=== PATIENT | female | born 1940 | race Caucasian/White ===

== ENCOUNTER → 2016-12-14 | Outpatient (CLI) | payer MEDICARE, OTHER ==
[~2016-12-14] MED LIST: AMBI5TAB PO; DIAZ5 PO; ESTR1 PO; HYDR-2768 PO; HYDR25TA5 PO; LEVO.1 PO; LEXA10TA PO; NABU1TAB37 PO; PRAM0.25 PO; ULTR50TA5 PO; ZOFR4TAB3 SL
[2016-12-14 14:24] LABS: ALKALINE PHOSPHATASE 66 U/L (45-117); ALT (GPT) 20 U/L (10-53); ANION GAP 10 MEQ/L (5-15); AST (GOT) 18 U/L (15-37); BICARBONATE 27.5 MEQ/L (21.0-32.0); BLOOD UREA NITROGEN 20 MG/DL (7-18); CHLORIDE 101 MEQ/L (98-107); GLOMERULAR FILTRATION RATE 46 ML/MIN (>89); GLUCOSE,FASTING 80 MG/DL (74-99); LDL CHOLESTEROL 99 MG/DL (0-99); POTASSIUM 3.8 MEQ/L (3.5-5.1); SODIUM (NA) 138 MEQ/L (136-145); TOTAL BILIRUBIN ADULT 0.5 MG/DL (0.2-1.0)
== END ==
LOC: PLAB 09:24
DX: E78.00 Pure hypercholesterolemia, unspecified (principal); E78.5 Hyperlipidemia, unspecified; E03.9 Hypothyroidism, unspecified; N18.3 Chronic kidney disease, stage 3 (moderate); Z79.899 Other long term (current) drug therapy
CPT/HCPCS: 36415; 80053; 80061; 84443

== ENCOUNTER 2017-02-02 06:57 | Emergency (ER) | payer MEDICARE, OTHER ==
[~2017-02-02] VITALS: Ht 157.5 cm; Wt 76.8 kg
[~2017-02-02 06:57] MED LIST changes: -AMBI5TAB PO; -DIAZ5 PO; -HYDR25TA5 PO; -NABU1TAB37 PO; -PRAM0.25 PO; -ULTR50TA5 PO
[2017-02-02 07:03] VITALS: BP 137/67; PULSE 75; RESP 16; TEMP 98.9; O2SAT 97
[2017-02-02] MEDS ORDERED: LEXA10TA PO (07:06)
[2017-02-02] MEDS ORDERED: ESTR1 PO (07:06)
[2017-02-02] MEDS ORDERED: AMBI5TAB PO (07:06)
[2017-02-02] MEDS ORDERED: LEVO.1 PO (07:06)
[2017-02-02] MEDS ORDERED: HYDR25TA5 PO (07:07)
[2017-02-02] MEDS ORDERED: PRAM0.25 PO (07:07)
[2017-02-02] MEDS ORDERED: DEXAMETHASONE SOD PHOS 20 MG/5 ML VIAL IV PUSH ONE (07:30)
[2017-02-02] MEDS ORDERED: MORPHINE SULFATE 4 MG/ML INJ IV ONE ×2 (07:30→08:45)
[2017-02-02] MEDS ORDERED: ONDANSETRON HCL 4 MG/2 ML VIAL IVP ONE (07:30)
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
[2017-02-02] MEDS ORDERED: LORazepam 2 MG/ML VIAL IV PUSH ONE (08:45)
--- NOTE | 2017-02-02 09:01 | RADHPO ---
EXAM DATE/TIME: 02/02/2017 08:09 [facility] COMPARISON: No previous studies available for comparison. INDICATIONS : Right neck pain x 2 days. RADIATION DOSE: 24.72 CTDIvol (mGy) MEDICAL HISTORY : None SURGICAL HISTORY : None. ENCOUNTER: Initial ACUITY: 2 days PAIN SCALE: 10/10 LOCATION: Right neck TECHNIQUE: Volumetric scanning of the cervical spine was performed. Multiplanar reconstructions in the sagittal, coronal and oblique axial planes were performed. Using automated exposure control and adjustment o f the mA and/or kV according to patient size, radiation dose was kept as low as reasonably achievable to obtain optimal diagnostic quality images. FINDINGS: CT scan of lumbar spine was performed in the axial plane with sagittal and coronal reconstructions. T here is retrolisthesis likely related to facet arthritis at C5-C6 at 3-4 mm with minimal subluxation of C4 on C5 and C6 on C7. There is a benign-appearing cystic area in the C2 vertebral body. There is no widening of the preodontoid space. No fractures are identified. Axial images performed from T12-L1 through L5-S1. C2-C3: There is no evidence of disc protrusion or spinal canal stenosis. There is mild facet arthritis on th e right. C3-C4: There is moderate facet arthritis bilaterally with ligamentum flavum hypertrophy. There is no signifi cant spinal canal stenosis. The neural foramina are clear bilaterally. There is mild annular bulge of the disc. C4-C5: A small central protrusion is present impinging on the thecal sac but not significantly deforming the cord. There is mild facet arthritis bilaterally. There is no significant spinal canal stenosis. C5-C6: There is mild diffuse annular bulge of the disc. The neural foramina are clear bilaterally. There is no significant spinal canal stenosis. C6-C7: There is mild facet arthritis bilaterally. There is no evidence of disc protrusion or spinal canal st enosis. C7-T1: No significant abnormalities identified. CONCLUSION: 1. Moderate degenerative changes as described above. There is no significant spinal canal stenosis. T he neural foramina are clear bilaterally. Brodie Tena MD on February 02, 2017 at 8:55 Board Certified Radiologist. This report was verified electronically.
[2017-02-02 09:15] VITALS: BP 145/62; PULSE 68; RESP 16; O2SAT 95
[2017-02-02 09:16] VITALS: RESP 16
[2017-02-02] MEDS ORDERED: DIAZ5 PO (09:33)
[2017-02-02] MEDS ORDERED: ULTR50TA5 PO (09:33)
[2017-02-02] MEDS ORDERED: NABU1TAB37 PO (09:36)
[2017-02-02 10:50] VITALS: BP 133/65
== END 2017-02-02 10:53 | disposition home or self-care (01) ==
LOC: PHED 06:57
DX: M54.2 Cervicalgia (principal); M47.812 Spondylosis without myelopathy or radiculopathy, cervical region
CPT/HCPCS: 72125; 96374; 96375; 96376; 99283; J1100; J2060; J2270; J2405

== ENCOUNTER → 2017-03-07 | Outpatient (CLI) | payer MEDICARE, OTHER ==
[~2017-03-07] MED LIST changes: +AMBI5TAB PO; +DIAZ5 PO; -HYDR-2768 PO; +HYDR25TA5 PO; +NABU1TAB37 PO; +PRAM0.25 PO; +ULTR50TA5 PO; -ZOFR4TAB3 SL
[2017-03-07 13:26] LABS: HEMATOCRIT 38.3 % (35.0-46.0); MEAN CELL VOLUME 81.9 FL (80.0-100.0); MEAN CORPUSCULAR HEMOGLOBIN 27.8 PG (27.0-34.0); PLATELET COUNT 491 TH/MM3 (150-450); RED BLOOD COUNT 4.68 MIL/MM3 (4.00-5.30); RED CELL DISTRIBUTION WIDTH 15.6 % (11.6-17.2); REVIEW FLAG FINAL; WHITE BLOOD COUNT 5.4 TH/MM3 (4.0-11.0)
[2017-03-07 14:00] LABS: ALKALINE PHOSPHATASE 66 U/L (45-117); ALT (GPT) 19 U/L (10-53); ANION GAP 11 MEQ/L (5-15); AST (GOT) 18 U/L (15-37); BICARBONATE 26.2 MEQ/L (21.0-32.0); BLOOD UREA NITROGEN 21 MG/DL (7-18); CHLORIDE 103 MEQ/L (98-107); GLOMERULAR FILTRATION RATE 46 ML/MIN (>89); GLUCOSE,FASTING 75 MG/DL (74-99); HDL CHOLESTEROL 43.2 MG/DL (40.0-60.0); LDL CHOLESTEROL 91 MG/DL (0-99); SODIUM (NA) 140 MEQ/L (136-145); TOTAL BILIRUBIN ADULT 0.3 MG/DL (0.2-1.0)
== END ==
LOC: PLAB 09:40
DX: E03.9 Hypothyroidism, unspecified (principal); E78.00 Pure hypercholesterolemia, unspecified; N18.3 Chronic kidney disease, stage 3 (moderate); Z79.899 Other long term (current) drug therapy
CPT/HCPCS: 36415; 80053; 80061; 84443; 85027

== ENCOUNTER → 2017-06-20 | Outpatient (CLI) | payer MEDICARE, OTHER ==
[2017-06-20 11:11] LABS: HEMATOCRIT 41.6 % (35.0-46.0); MEAN CELL VOLUME 82.9 FL (80.0-100.0); MEAN CORPUSCULAR HEMOGLOBIN 27.6 PG (27.0-34.0); MEAN CORPUSCULAR HGB CONC 33.2 % (32.0-36.0); PLATELET COUNT 347 TH/MM3 (150-450); RED BLOOD COUNT 5.01 MIL/MM3 (4.00-5.30); RED CELL DISTRIBUTION WIDTH 15.5 % (11.6-17.2); REVIEW FLAG FINAL; WHITE BLOOD COUNT 6.9 TH/MM3 (4.0-11.0)
[2017-06-20 11:35] LABS: ALT (GPT) 17 U/L (10-53); ANION GAP 10 MEQ/L (5-15); AST (GOT) 19 U/L (15-37); BICARBONATE 25.8 MEQ/L (21.0-32.0); BLOOD UREA NITROGEN 19 MG/DL (7-18); CHLORIDE 102 MEQ/L (98-107); GLOMERULAR FILTRATION RATE 49 ML/MIN (>89); GLUCOSE,FASTING 75 MG/DL (74-99); POTASSIUM 3.5 MEQ/L (3.5-5.1); SODIUM (NA) 138 MEQ/L (136-145)
[2017-06-20 11:45] LABS: ALKALINE PHOSPHATASE 56 U/L (45-117); HDL CHOLESTEROL 46.1 MG/DL (40.0-60.0); LDL CHOLESTEROL 96 MG/DL (0-99); TOTAL BILIRUBIN ADULT 0.3 MG/DL (0.2-1.0)
== END ==
LOC: PLAB 09:09
DX: E03.9 Hypothyroidism, unspecified (principal); E78.00 Pure hypercholesterolemia, unspecified; N18.3 Chronic kidney disease, stage 3 (moderate); Z79.890 Hormone replacement therapy
CPT/HCPCS: 36415; 80053; 80061; 84443; 85027

== ENCOUNTER → 2017-08-03 | Outpatient (CLI) | payer MEDICARE, OTHER ==
[2017-08-03 13:35] LABS: BICARBONATE 26.9 MEQ/L (21.0-32.0); POTASSIUM 3.7 MEQ/L (3.5-5.1)
== END ==
LOC: PLAB 08:45
DX: E03.9 Hypothyroidism, unspecified (principal); N18.3 Chronic kidney disease, stage 3 (moderate); Z79.899 Other long term (current) drug therapy
CPT/HCPCS: 36415; 80048; 84443

== ENCOUNTER → 2017-09-13 | Outpatient (CLI) | payer MEDICARE, OTHER ==
[~2017-09-13] MED LIST changes: +TRAM50 PO; -ULTR50TA5 PO
[2017-09-13 13:13] LABS: ALKALINE PHOSPHATASE 72 U/L (45-117); ALT (GPT) 22 U/L (10-53); HDL CHOLESTEROL 48.1 MG/DL (40.0-60.0); TOTAL BILIRUBIN ADULT 0.4 MG/DL (0.2-1.0)
[2017-09-13 13:17] LABS: ANION GAP 10 MEQ/L (5-15); AST (GOT) 26 U/L (15-37); BICARBONATE 23.7 MEQ/L (21.0-32.0); BLOOD UREA NITROGEN 20 MG/DL (7-18); CHLORIDE 104 MEQ/L (98-107); GLOMERULAR FILTRATION RATE 51 ML/MIN (>89); GLUCOSE,FASTING 79 MG/DL (74-99); LDL CHOLESTEROL 121 MG/DL (0-99); POTASSIUM 4.2 MEQ/L (3.5-5.1); SODIUM (NA) 138 MEQ/L (136-145)
== END ==
LOC: PLAB 07:49
DX: E03.9 Hypothyroidism, unspecified (principal); N18.3 Chronic kidney disease, stage 3 (moderate); E78.00 Pure hypercholesterolemia, unspecified; Z79.899 Other long term (current) drug therapy
CPT/HCPCS: 36415; 80053; 80061; 84443

== ENCOUNTER → 2017-10-31 | Outpatient (CLI) | payer MEDICARE, OTHER ==
[2017-10-31 14:00] LABS: BICARBONATE 24.2 MEQ/L (21.0-32.0); POTASSIUM 3.9 MEQ/L (3.5-5.1)
== END ==
LOC: PLAB 09:00
DX: N18.3 Chronic kidney disease, stage 3 (moderate) (principal); Z79.899 Other long term (current) drug therapy
CPT/HCPCS: 36415; 80048

== ENCOUNTER → 2017-12-15 | Outpatient (CLI) | payer MEDICARE, OTHER ==
[2017-12-15 13:48] LABS: ALBUMIN 3.6 GM/DL (3.4-5.0); AST (GOT) 18 U/L (15-37); BLOOD UREA NITROGEN 19 MG/DL (7-18); CALCIUM 9.2 MG/DL (8.5-10.1); CHLORIDE 102 MEQ/L (98-107); CREATININE 1.04 MG/DL (0.50-1.00); GLOMERULAR FILTRATION RATE 51 ML/MIN (>89); GLUCOSE,FASTING 88 MG/DL (74-99); SODIUM (NA) 140 MEQ/L (136-145)
[2017-12-15 13:49] LABS: ALT (GPT) 17 U/L (10-53); CHOLESTEROL 185 MG/DL (120-200); TRIGLYCERIDES 141 MG/DL (42-150)
[2017-12-15 13:59] LABS: ALKALINE PHOSPHATASE 75 U/L (45-117); CHOLESTEROL/ HDL RATIO 3.26 RATIO; HDL CHOLESTEROL 56.6 MG/DL (40.0-60.0); LDL CHOLESTEROL 100 MG/DL (0-99); TOTAL BILIRUBIN ADULT 0.5 MG/DL (0.2-1.0); TOTAL PROTEIN 7.4 GM/DL (6.4-8.2)
== END ==
LOC: PLAB 09:46
DX: E78.00 Pure hypercholesterolemia, unspecified (principal); E03.9 Hypothyroidism, unspecified; N18.3 Chronic kidney disease, stage 3 (moderate); Z79.899 Other long term (current) drug therapy
CPT/HCPCS: 36415; 80053; 80061; 84443

== ENCOUNTER → 2018-01-30 | Outpatient (CLI) | payer MEDICARE, OTHER ==
[2018-01-30 10:37] LABS: BICARBONATE 23.8 MEQ/L (21.0-32.0); CALCIUM 8.6 MG/DL (8.5-10.1); CREATININE 1.09 MG/DL (0.50-1.00)
== END ==
LOC: PLAB 08:55
DX: N18.3 Chronic kidney disease, stage 3 (moderate) (principal); Z79.899 Other long term (current) drug therapy
CPT/HCPCS: 36415; 80048

== ENCOUNTER → 2018-03-27 | Outpatient (CLI) | payer MEDICARE, OTHER ==
[2018-03-27 13:59] LABS: BICARBONATE 24.9 MEQ/L (21.0-32.0); CALCIUM 8.9 MG/DL (8.5-10.1); CREATININE 1.01 MG/DL (0.50-1.00)
== END ==
LOC: PLAB 08:49
DX: N18.3 Chronic kidney disease, stage 3 (moderate) (principal); Z79.899 Other long term (current) drug therapy
CPT/HCPCS: 36415; 80048